=== PATIENT | male | born 1950 | race Caucasian/White ===

== ENCOUNTER 2017-03-29 12:48 | Inpatient (IN) | payer OTHER ==
[~2017-03-29] VITALS: Ht 170.2 cm; Wt 139.7 kg
--- NOTE | ~2017-03-29 | H ---
[facility] [place] [address] HISTORY AND PHYSICAL Name: RACHEAL BLANTON Room #: 211-P ADM IN M.R.#: [id number] Admission: 03/29/17 Attend Phys: Carey Gooden MD Discharge: Date of : 46 Report #: [id number] THIS REPORT FOR: //name// CC: Benjy Gooden DATE OF SERVICE: 03/29/2017 CHIEF COMPLAINT: Left lower abdominal pain. HISTORY OF PRESENT ILLNESS: The patient is a 67-year-old man with history of AFib, on Coumadin, who states that he started having left lower abdominal pain yesterday. It felt like the patient pulled muscle. The pain did not go away, and worsened today. He came to the emergency room. In the ER, CT scan of the abdomen showed left lower rectus sheath hematoma. The patient's INR was 3.8. The patient takes Coumadin for atrial fibrillation. He had a pacemaker placed. He states that he is doing overall well, and he has no complaints, other than mentioned above. About a week ago, the patient fell, injured his right shoulder. He says that x-rays were taken, that showed no fractures, and he is now recovering from the pain. PAST MEDICAL HISTORY: 1. Atrial fibrillation, status post pacemaker placement. 2. Mitral valve repair, no mechanical valve. 3. Diabetes mellitus type 2. 4. Dyslipidemia. 5. CHF, details are not specified. 6. Hypothyroidism. CURRENT MEDICATIONS: Reviewed and documented in the patient's chart. FAMILY HISTORY: Reviewed and not pertinent to the patient's current condition. SOCIAL HISTORY: The patient does not smoke cigarettes and does not drink alcohol. REVIEW OF SYSTEMS: As above in HPI section, all others negative. PHYSICAL EXAMINATION: GENERAL: The patient is an elderly man who is in no apparent distress. VITAL SIGNS: His blood pressure is 112/55, heart rate is 75 and regular, respiration is 18, and temperature is 97.8. HEENT: Pupils are equal. Eye movements are normal. Sclerae are anicteric. NECK: Supple. The patient has no thyromegaly. The patient has no JVD. Carotid bruits are not appreciated. [facility] [address] [place] [address] HISTORY AND PHYSICAL Name: RACHEAL BLANTON Room #: [address] [place] [address] [place] [facility].#: [id number] Admission: 03/29/17 Attend Phys: Carey Gooden MD Discharge: Date of : 46 Report #: [id number] CARDIOVASCULAR: The patient has regular rhythm and rate. He has no murmurs, gallops, or rubs. GASTROINTESTINAL: Abdomen is soft. He has left lower quadrant tenderness, close to the midline. He also has minor swelling in the same area. Bowel sounds are present. MUSCULOSKELETAL: The patient has no major joint deformities. His range of motion is normal. He has no edema, cyanosis, or clubbing. NEUROLOGIC: The patient is alert and oriented x3. His examination is nonfocal. SKIN: Reveals no skin lesions. LABORATORY DATA: As noted, current INR is 3.8. Metabolic profile is essentially normal, except with creatinine of 1.6. Random glucose is 61. Liver function tests are normal. CBC showed hemoglobin of 12.1. Platelets are slightly low at 146. Urinalysis is unremarkable. CT of the abdomen showed large left rectus sheath hematoma, as well as cholelithiasis. ASSESSMENT AND PLAN: 1. Large left rectus sheath hematoma. Coumadin is discontinued, and the patient is started on vitamin K. General surgeon is consulted. Consultation is very much appreciated. 2. Atrial fibrillation, status post pacemaker. The patient is on amiodarone. This will be continued unchanged. No anticoagulation for now. 3. Status post mitral valve repair. No mechanical valve. 4. Diabetes mellitus type 2. Insulin will be continued. We will hold glimepiride for now. 5. Slightly elevated creatinine at 1.6. Acute kidney injury versus chronic kidney disease stage 3. Creatinine will be monitored. 6. Hypothyroidism. The patient is on levothyroxine 175 mcg a day. We will check TSH and adjust levothyroxine as necessary. 7. Hypertension. Acceptable control. Continue losartan. <ELECTRONICALLY SIGNED> By: Carey Gooden MD 03/30/17 0937 1755 193 Carey Gooden MD /nt
--- NOTE | ~2017-03-29 | HC ---
[facility] [address] [place] [address] CONSULTATION Name: RACHEAL BLANTON Room #: 211-P [facility] IN M.R.#: [id number] Admission: 03/29/17 Attend Phys: Carey Gooden MD Discharge: 04/02/17 Date of : 46 Report #: [id number] THIS REPORT FOR: //name// CC: Benjy Gooden REASON FOR CONSULTATION: Cardiac history; retroperitoneal hematoma. HISTORY OF PRESENT ILLNESS: The patient is a 67-year-old gentleman with a complicated history including symptomatic paroxysmal atrial fibrillation for which he has underwent at least three cardioversion procedures predating ultimately mitral valve repair in 2012 at [facility] in [place], [place]. He reports a pacemaker was placed prior to the surgery. He continues to have symptoms all be less following surgery and ultimately biventricular pacer placement was placed. He thinks that an ablation, may be AV node ablation was performed at the time the biventricular pacer defibrillator was placed. He subsequently moved to the [place] area and has been followed by Dr. Mani Montesinos at [facility]. He did have inappropriate ICD discharge from what sounds like a lead problem for which he went lead revision in 2014. He has had echocardiograms performed, although these results are not currently available, similarly records from are not intermediately available, but have been requested. About a week ago, he had a nonsyncopal fall and injured his right shoulder and elbow. He has a large ecchymosis over his shoulder. A 3 to 4 days ago, he developed diffuse and left lower abdominal pain, this became much more severe prompting him to come to the Emergency Department where a CT scan demonstrated a large left inferior rectus sheath hematoma. There was mass affect upon a distended urinary bladder. His INR at the time of presentation was 3.8. He has not required transfusion therapy. I have been asked to render opinion about length of time off of warfarin. He denies recent heart failure symptoms including orthopnea or paroxysmal nocturnal dyspnea. His INRs have been checked monthly and have been in the therapeutic range. Denies recent symptoms to suggest ICD discharge. MEDICATIONS: Include amiodarone 200 mg daily, losartan 25 mg daily, aspirin, glimepiride 2 mg daily, atorvastatin 40 mg daily, carvedilol 6.25 mg twice daily, levothyroxine 175 mcg daily, Victoza 0.6 mg subcutaneous, and warfarin. ALLERGIES: HE IS ALLERGIC TO ADHESIVE TAPE. PAST MEDICAL HISTORY: Medical records have been reviewed and include a history of mitral valve repair, cardiomyopathy with biventricular pacer defibrillator placement. 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 SOCIAL HISTORY: He is . 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 FAMILY HISTORY: Notable for coronary artery disease in advanced age in both [address] [place] [address] CONSULTATION Name: RACHEAL BLANTON Room #: 211-P [facility] IN M.R.#: [id number] Admission: 03/29/17 Attend Phys: Carey Gooden MD Discharge: 04/02/17 Date of : 46 Report #: [id number]. REVIEW OF SYSTEMS: All systems negative except as that noted above. PHYSICAL EXAMINATION: GENERAL: This is a pleasant gentleman, who is alert and in no distress. VITAL SIGNS: Blood pressure is 100/52, heart rate is 70 and regular. He is afebrile. He is 5 feet 7 inches tall and 305 pounds. HEENT: There are neither xanthelasma, subcutaneous xanthomata, oral mucosal or digital cyanosis or kyphoscoliosis present. CHEST: Clear to auscultation and percussion. CARDIOVASCULAR: Regular rate and rhythm with normal S1 and S2. ABDOMEN: Soft, obese and nontender. EXTREMITIES: With trace edema. Radial pulses are 2+. NEUROLOGIC: He is alert with a nonfocal exam. LABORATORY DATA: EKG demonstrates biventricular pacing, I cannot tell if this is atrial fibrillation with IV pacing or sinus rhythm with low amplitude P-waves. Sodium is 136, potassium 3.4, and creatinine 1.7. INR of 1.7. White count 9.4, hemoglobin 10.5, hematocrit 29, and platelet count 139. IMPRESSION: 1. Large retroperitoneal hematoma. 2. Status post nonsyncopal fall contributing to #1 above. 3. History of mitral valve repair in 2012. 4. 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 5. Possible history of AV node ablation at the time of biventricular pacemaker placement; lead revision in 2014. 6. Acute kidney injury, possibly related to #1 above. 7. Hypertension. 8. Sleep apnea, on CPAP. RECOMMENDATIONS: 1. I believe that his warfarin is used for the possibility of paroxysmal atrial fibrillation with an elevated CHADS-VASc score. He does not have an indication for anticoagulant therapy following mitral valve repair. I will obtain records from [facility] in [place] and to confirm this. I would recommend being off of warfarin for at least 10 days to 2 weeks to assure the retroperitoneal bleeding has stopped and the hematoma has resolved or at least smaller. Further thoughts will be forthcoming based on this evaluation and based on review of requested records. [facility] [address] [place] [address] CONSULTATION Name: RACHEAL BLANTON Room #: 211-P DIS IN M.R.#: [id number] Admission: 03/29/17 Attend Phys: Carey Gooden MD Discharge: 04/02/17 Date of : 46 Report #: [id number] Thank you for asking me to participate in his care. <ELECTRONICALLY SIGNED> By: Cornelio Ambriz MD, FACC 04/06/17 0823 1424 0134 Cornelio Ambriz MD, FACC /nt
[2017-03-29 12:54] VITALS: BP 94/52
[2017-03-29 13:54] LABS: HEMATOCRIT 34.9 % (42.0-52.0); HEMOGLOBIN 12.1 gm/dL (14.0-18.0); MCH 31.8 pg (26.0-34.0); MCHC 34.6 g/dL (28.0-37.0); MCV 91.7 fL (80.0-100.0); PLATELET COUNT 146 thou/uL (150-400); RBC 3.81 mil/uL (4.50-6.00); RDW 15.5 % (10.5-14.5)
[2017-03-29 13:55] LABS: MANUAL DIFF YES
[2017-03-29 14:13] LABS: CALCIUM 8.5 mg/dL (8.5-10.1); CREATININE 1.6 mg/dL (0.7-1.3); POTASSIUM 4.2 mmol/L (3.5-5.1)
[2017-03-29 14:16] LABS: ABSOLUTE NEUTROPHILS 6.7 thou/uL (1.4-8.2); PLATELET ESTIMATE NORMAL; TOTAL CELL COUNT 100
[2017-03-29 14:17] LABS: ALBUMIN 3.4 g/dL (3.4-5.0); TOTAL BILIRUBIN 2.8 mg/dL (<0.1-1.0); TOTAL PROTEIN 7.1 g/dL (6.4-8.2)
[2017-03-29 14:54] LABS: URINE BILIRUBIN NEGATIVE (Negative); URINE BLOOD NEGATIVE (Negative); URINE COLOR YELLOW; URINE GLUCOSE-RANDOM* NEGATIVE (Negative); URINE KETONES NEGATIVE (Negative); URINE PROTEIN (DIPSTICK) NEGATIVE (Negative); URINE UROBILINOGEN 0.2 E.U./dl (0.2-1.0)
[2017-03-29 14:56] LABS: URINE LEUKOCYTES-REFLEX TRACE (Negative)
[2017-03-29] MEDS ORDERED: FOLIC ACID0.8 MG PO (15:52)
[2017-03-29] MEDS ORDERED: PACERONE 200 M200 M1 PO (15:52)
[2017-03-29] MEDS ORDERED: MAGOX 400400 MG PO (15:59)
[2017-03-29] MEDS ORDERED: UNICOMPLEX M TA1 TA1 PO (15:59)
[2017-03-29] MEDS ORDERED: COZAAR 25 MG TA25 M1 PO (16:00)
[2017-03-29] MEDS ORDERED: VITAMIN D-32000 UNIT PO (16:00)
[2017-03-29] MEDS ORDERED: [UNRECOGNIZED DRUG - OTHER] PO (16:01)
[2017-03-29] MEDS ORDERED: ASPIR 8181 MG PO (16:01)
[2017-03-29] MEDS ORDERED: AMARYL2 MG PO (16:01)
[2017-03-29 16:02] LABS: INR 3.8; PROTIME 37.8 Seconds (9.3-11.4)
[2017-03-29] MEDS ORDERED: CARVEDILOL6.25 MG (16:02)
[2017-03-29] MEDS ORDERED: ATORVASTATIN CA40 MG PO (16:02)
[2017-03-29] MEDS ORDERED: LEVEMIR100 UNIT/1 SUBQ (16:03)
[2017-03-29] MEDS ORDERED: SYNTHROID175 MCG PO (16:03)
[2017-03-29] MEDS ORDERED: VICTOZA0.6 MG/0.1 SUBQ (16:04)
[2017-03-29] MEDS ORDERED: COUMADIN 2 MG TA2 M1 PO (16:05)
[2017-03-29] MEDS ORDERED: COUMADIN 5 MG TA5 M1 PO ×2 (16:06)
[2017-03-29 16:58] VITALS: BP 112/55
[2017-03-29 17:35] VITALS: BP 119/60
[2017-03-29 19:32] VITALS: BP 111/69
[2017-03-29 21:04] LABS: HEMATOCRIT 34.3 % (42.0-52.0); HEMOGLOBIN 11.7 gm/dL (14.0-18.0)
[2017-03-29 22:58] VITALS: BP 102/52
[2017-03-30 03:53] VITALS: BP 102/70
[2017-03-30 04:04] LABS: HEMATOCRIT 31.3 % (42.0-52.0); HEMOGLOBIN 10.9 gm/dL (14.0-18.0); MCH 32.3 pg (26.0-34.0); MCHC 34.9 g/dL (28.0-37.0); MCV 92.5 fL (80.0-100.0); PLATELET COUNT 140 thou/uL (150-400); RBC 3.39 mil/uL (4.50-6.00); RDW 15.5 % (10.5-14.5); WBC 9.5 thou/uL (4.0-11.0)
[2017-03-30 04:05] LABS: MANUAL DIFF YES
[2017-03-30 04:19] LABS: CALCIUM 8.1 mg/dL (8.5-10.1); CREATININE 1.6 mg/dL (0.7-1.3); POTASSIUM 3.9 mmol/L (3.5-5.1)
[2017-03-30 04:20] LABS: PROTIME 16.9 Seconds (9.3-11.4)
[2017-03-30 04:30] LABS: INR 1.7
[2017-03-30 05:07] LABS: ABSOLUTE NEUTROPHILS 8.3 thou/uL (1.4-8.2); TOTAL CELL COUNT 100
[2017-03-30 08:00] VITALS: BP 114/69
[2017-03-30 11:45] VITALS: BP 106/64
[2017-03-30 15:35] VITALS: BP 99/60
[2017-03-30 19:47] VITALS: BP 96/57
[2017-03-31 04:02] VITALS: BP 95/60
[2017-03-31 04:20] LABS: HEMATOCRIT 29.6 % (42.0-52.0); HEMOGLOBIN 10.5 gm/dL (14.0-18.0); MCH 32.6 pg (26.0-34.0); MCHC 35.5 g/dL (28.0-37.0); PLATELET COUNT 139 thou/uL (150-400); RBC 3.22 mil/uL (4.50-6.00); RDW 15.4 % (10.5-14.5); WBC 9.4 thou/uL (4.0-11.0)
[2017-03-31 04:23] LABS: MANUAL DIFF YES
[2017-03-31 04:30] LABS: CALCIUM 8.3 mg/dL (8.5-10.1); CREATININE 1.7 mg/dL (0.7-1.3); POTASSIUM 3.4 mmol/L (3.5-5.1)
[2017-03-31 06:23] LABS: ABSOLUTE NEUTROPHILS 7.2 thou/uL (1.4-8.2); ANISOCYTOSIS 1+; POLYCHROMASIA OCCASIONAL; TOTAL CELL COUNT 100
[2017-03-31 07:10] VITALS: BP 89/53
[2017-03-31 09:55] VITALS: BP 100/52
[2017-03-31 11:10] VITALS: BP 87/43
[2017-03-31 15:30] VITALS: BP 101/66
[2017-03-31 20:00] VITALS: BP 112/71
[2017-04-01] VITALS (7 sets, daily range): BP systolic 95–140; BP diastolic 53–67
[2017-04-01 03:31] LABS: HEMOGLOBIN 9.6 gm/dL (14.0-18.0); MCH 31.3 pg (26.0-34.0); MCHC 34.1 g/dL (28.0-37.0); MCV 91.8 fL (80.0-100.0); PLATELET COUNT 144 thou/uL (150-400); RBC 3.05 mil/uL (4.50-6.00); RDW 15.6 % (10.5-14.5); WBC 8.6 thou/uL (4.0-11.0)
[2017-04-01 03:33] LABS: MANUAL DIFF YES
[2017-04-01 03:38] LABS: CALCIUM 8.2 mg/dL (8.5-10.1); CREATININE 1.7 mg/dL (0.7-1.3); POTASSIUM 3.6 mmol/L (3.5-5.1)
[2017-04-01 05:40] LABS: ABSOLUTE NEUTROPHILS 6.7 thou/uL (1.4-8.2); ANISOCYTOSIS SLIGHT; TOTAL CELL COUNT 100
[2017-04-01 22:02] LABS: HEMATOCRIT 28.3 % (42.0-52.0)
[2017-04-02 03:00] VITALS: BP 94/41
[2017-04-02 03:02] VITALS: BP 94/41
[2017-04-02 03:33] LABS: HEMATOCRIT 28.2 % (42.0-52.0); HEMOGLOBIN 9.6 gm/dL (14.0-18.0); MCH 31.5 pg (26.0-34.0); MCHC 33.9 g/dL (28.0-37.0); MCV 93.1 fL (80.0-100.0); PLATELET COUNT 176 thou/uL (150-400); RBC 3.03 mil/uL (4.50-6.00); RDW 15.3 % (10.5-14.5); WBC 8.9 thou/uL (4.0-11.0)
[2017-04-02 03:42] LABS: CALCIUM 8.3 mg/dL (8.5-10.1); CREATININE 1.7 mg/dL (0.7-1.3)
[2017-04-02 04:13] LABS: MANUAL DIFF YES
[2017-04-02 06:57] LABS: ABSOLUTE NEUTROPHILS 6.8 thou/uL (1.4-8.2); ANISOCYTOSIS 1+; HYPOCHROMASIA 1+; METAMYELOCYTES 1 %; POLYCHROMASIA OCCASIONAL; TOTAL CELL COUNT 100
[2017-04-02 07:30] VITALS: BP 108/51
[2017-04-02 11:23] VITALS: BP 111/45
[2017-04-02] MEDS ORDERED: POTASSIUM20 PO (13:06)
[2017-04-02] MEDS ORDERED: COLACE100 MG PO (13:06)
[2017-04-02] MEDS ORDERED: MIRALAX17 GM PO (13:06)
[2017-04-02] MEDS ORDERED: DEMADEX20 MG PO (13:06)
[2017-04-02] MEDS ORDERED: BACITRACIN28.4 GM TOP (13:06)
[2017-04-02 13:27] VITALS: BP 111/45
== END 2017-04-02 15:01 | disposition home or self-care (01) | DRG 914 ==
LOC: ER 12:48 → 2N 16:46 → EROBS 16:46 → 2N 17:03 → ENTRNSPT 04-02 13:45 → EDTRNSPTSTS 04-02 13:49 → 2N 04-02 15:01
PROVIDERS: Internal Medicine Endocrinology, Diabetes & Metabolism; Nurse Practitioner Acute Care; Physician Assistant
DX: S36.892A Contusion of other intra-abdominal organs, initial encounter (principal); N17.9 Acute kidney failure, unspecified; D68.59 Other primary thrombophilia; I13.0 Hypertensive heart and chronic kidney disease with heart failure and stage 1 through stage 4 chronic kidney disease, or unspecified chronic kidney disease; I42.9 Cardiomyopathy, unspecified; Z68.42 Body mass index [BMI] 45.0-49.9, adult; D64.9 Anemia, unspecified; E78.5 Hyperlipidemia, unspecified; I50.9 Heart failure, unspecified; E03.9 Hypothyroidism, unspecified; I48.91 Unspecified atrial fibrillation; E66.01 Morbid (severe) obesity due to excess calories; E11.65 Type 2 diabetes mellitus with hyperglycemia; E87.6 Hypokalemia; G47.33 Obstructive sleep apnea (adult) (pediatric); N18.3 Chronic kidney disease, stage 3 (moderate); K59.00 Constipation, unspecified; X58.XXXA Exposure to other specified factors, initial encounter; E11.22 Type 2 diabetes mellitus with diabetic chronic kidney disease; Z95.0 Presence of cardiac pacemaker; Z88.8 Allergy status to other drugs, medicaments and biological substances; Z95.2 Presence of prosthetic heart valve; Z79.4 Long term (current) use of insulin; Y93.89 Activity, other specified; Y92.89 Other specified places as the place of occurrence of the external cause; Y99.8 Other external cause status
CPT/HCPCS: 10081

== ENCOUNTER → 2017-06-20 | Outpatient (CLI) | payer OTHER ==
[~2017-06-20] VITALS: Ht 170.2 cm; Wt 127.9 kg
[~2017-06-20] MED LIST: AMARYL2 MG PO; ASPIR 8181 MG PO; ATORVASTATIN CA40 MG PO; BACITRACIN28.4 GM TOP; CARVEDILOL6.25 MG; COLACE100 MG PO; COUMADIN 2 MG TA2 M1 PO; COUMADIN 5 MG TA5 M1 PO; COZAAR 25 MG TA25 M1 PO; DEMADEX20 MG PO; FOLIC ACID0.8 MG PO; LEVEMIR100 UNIT/1 SUBQ; MAGOX 400400 MG PO; MIRALAX17 GM PO; PACERONE 200 M200 M1 PO; POTASSIUM20 PO; SYNTHROID175 MCG PO; UNICOMPLEX M TA1 TA1 PO; VICTOZA0.6 MG/0.1 SUBQ; VITAMIN D-32000 UNIT PO; [UNRECOGNIZED DRUG - OTHER] PO
--- NOTE | ~2017-06-20 | CATHLAB ---
[facility] [place] [address] [place] [address] INVASIVE PROCEDURE REPORT Name: FRANCOISE BLANTONMIHAI DIXON Room #: REG [facility]#: [id number] Admission: 06/20/17 Attend Phys: Cornelio Ambriz, Discharge: Date of : 46 Date of Service: 06/20/17 1248 Report #: [id number] THIS REPORT FOR: //name// APPROVED REPORT Patient Details Patient Status: Out-Patient Room #: The patient is a 67 year-old male Event Personnel Cornelio Ambriz Vacuum Drier Operator, Fernando Scales RN, Keyla Rosales CVT Monitor, Dedrick Maloney Veterinary Radiologist Procedures Performed Left Heart Cath w/or w/o Coronaries [id number] [facility] Procedure Narrative The Right Groin^ was infiltrated with subcutaneous anesthesia. A PINNACLE 6FR Sheath #[id number] sheath was inserted into the RFA 6FR^. Coronary angiography was performed using coronary diagnostic catheters. The right coronary system was accessed and visualized with a JR4 catheter. The left coronary system was accessed and visualized with a JL4 catheter. The left ventricle was accessed and visualized with a PIGTAIL catheter. Left ventriculogram was performed in 30 degree projection. Closure device was deployed with a 6 Fr MYNXGRIP 6/7F #[id number]. The patient tolerated the procedure well and there were no complications associated with the procedure. 8.08 Intraoperative Conscious Sedation Sedation start time: Case end Time: 8.25 Fentanyl 25.0 mcg Versed 1.5 mg Fluoro Time: 2.20 minutes Dose: DAP 5244.45 cGycm2 710 mGy Contrast Type and Amount: Visipaque 50 ml Coronary Angiography The patient's coronary anatomy is right dominant. Diagnostic Cath Left Main Normal LAD Mild scattered plaquing Diagonal 1 Single large diagonal branch with minimal plaquing Circumflex Non-dominant and comprised of single marginal [facility] [place] [address] [place] [address] INVASIVE PROCEDURE REPORT Name: RACHEAL BLANTON Room #: REG [facility]#: [id number] Admission: 06/20/17 Attend Phys: Cornelio Ambriz, Discharge: Date of : 46 Date of Service: 06/20/17 1248 Report #: [id number] OM1 Mild scattered plaquing Right Coronary Large, dominant and angiographically normal including large PDA and PL branches Left Ventriculography Left Ventriculography was not performed. Hemodynamics The aortic pressure is 113/79 mmHg with a mean of 93 mmHg. The left ventricular pressure is 115/27 mmHg with a mean of mmHg. The left ventricular end diastolic pressure is 42 mmHg. There was no gradient across the aortic valve upon pullback. Conclusion 1. Mild scattered plaquing in coronary tree 2. Right dominant circulation 3. Elevated left heart pressures <ELECTRONICALLY SIGNED> By: Cornelio Ambriz MD, FACC 06/20/17 1248 1248 1248 Cornelio Ambriz MD, FAC /INF
--- NOTE | ~2017-06-20 | EKG ---
[place] [address] [facility] [place] [address] ELECTROCARDIOGRAM REPORT Name: [facility]ACHEAL BLANTON [id number] Admission: 06/20/17 Attend Phys: Cornelio Ambriz MD, Discharge: Date of : 46 Report #: [id number] THIS REPORT FOR: //name// [facility] Test Date: 2017-06-20 Test Time: 07:04:34 Pat Name: RACHEAL BLANTON Department: Room: Gender: M Infection Control Practitioner: Alexey MEADOWS : 1950 Requested By: Cornelio Ambriz Order Number: [id number] MD: Cornelio Ambriz Measurements Intervals [place] Rate: 70 P: 0 DE: 39 QRS: 162 QRSD: 184 T: 130 QT: 501 QTc: 541 Interpretive Statements Atrial-ventricular dual-paced rhythm No further analysis attempted due to paced rhythm Compared to ECG 05/05/2017 10:31:54 No significant changes Electronically Signed On 06-21-2017 7:39:47 STARCHMAKER by Cornelio Ambriz [email or web address] <ELECTRONICALLY SIGNED> By: Cornelio Ambriz MD, [facility] 06/21/17 0739 0704 0704 Cornelio Ambriz MD, [facility] /EPI
[2017-06-20 07:19] LABS: HEMATOCRIT 36.8 % (42.0-52.0); HEMOGLOBIN 12.3 gm/dL (14.0-18.0); MCH 30.5 pg (26.0-34.0); MCHC 33.5 g/dL (28.0-37.0); MCV 91.1 fL (80.0-100.0); RBC 4.04 mil/uL (4.50-6.00)
[2017-06-20 07:32] LABS: INR 1.2
[2017-06-20 07:33] LABS: CALCIUM 8.9 mg/dL (8.5-10.1); CREATININE 1.8 mg/dL (0.7-1.3); POTASSIUM 4.1 mmol/L (3.5-5.1)
[2017-06-20 07:40] VITALS: BP 101/61
[2017-06-20 15:24] LABS: CHOLESTEROL 142 mg/dL (<200); HDL CHOLESTEROL 46 mg/dL (>40); LDL CHOLESTEROL 76 mg/dL (<100); TC:HDL 3.1 Ratio (Not establshd); TRIGLYCERIDE 101 mg/dL (<150); TROPONIN-I 0.09 ng/mL (<0.06); VLDL 20 mg/dL (<40)
== END | disposition home or self-care (01) ==
LOC: CATH 06:35
PROVIDERS: Internal Medicine; Internal Medicine Cardiovascular Disease
DX: I25.10 Atherosclerotic heart disease of native coronary artery without angina pectoris (principal); I11.0 Hypertensive heart disease with heart failure; I50.9 Heart failure, unspecified; E11.9 Type 2 diabetes mellitus without complications; I42.9 Cardiomyopathy, unspecified; I48.92 Unspecified atrial flutter; E66.9 Obesity, unspecified; Z79.4 Long term (current) use of insulin; Z87.891 Personal history of nicotine dependence

== ENCOUNTER 2017-12-13 17:55 | Inpatient (IN) | payer OTHER ==
[~2017-12-13] VITALS: Ht 170.2 cm; Wt 131.0 kg
--- NOTE | ~2017-12-13 | 2DMMODE ---
[facility] [address] [place] [address] 2 D/M-MODE ECHOCARDIOGRAM Name: RACHEAL BLANTON DESTINY Room #: 214-P ADM IN M.R.#: [id number] Admission: 12/13/17 Attend Phys: Brent Ashton, Discharge: Date of : 46 Date of Service: 12/14/17 1500 Report #: [id number] THIS REPORT FOR: //name// APPROVED REPORT Study performed: 12/14/2017 10:13:44 EXAM: Comprehensive 2D, Doppler, and color-flow Echocardiogram Patient Location: Echo lab Room #: 214 Status: routine BSA: 2.36 HR: 69 bpm BP: 115/71 mmHg Other Information Study Quality: Adequate Indications ICD: Congestive Heart Failure Mitral Valve Disease Diabetes Cardiomyopathy 2D Dimensions RVDd: 53.14 mm LVEF(%): 27.78 (>50%) IVSd: 10.75 (7-11mm) LVOT Diam: 24.38 (18-24mm) LVDd: 67.58 mm PWd: 10.60 (7-11mm) Ascending Ao: 30.70 (22-36mm) LVDs: 58.58 (25-40mm) Aortic Root: 32.09 mm IVC: 24.00 mm Davidson's LVEF: 27.78 % Volumes Left Atrial Volume (Systole) Single Plane 4CH: 90.47 mL Single Plane 2CH: 128.60 mL LA ESV Index: 48.00 mL/m2 Aortic Valve AoV Peak Vincent.: 1.01 m/s AO Peak Gr.: 4.09 mmHg LVOT Max P.15 mmHg LVOT Max V: 0.73 m/s INA Vmax: 3.38 cm2 [facility] [address] [place] [address] 2 D/M-MODE ECHOCARDIOGRAM Name: RACHEAL BLANTON [facility] Room #: 214-[facility] IN ..#: [id number] Admission: 12/13/17 Attend Phys: Brent Ashton, Discharge: Date of : 46 Date of Service: 12/14/17 1500 Report #: [id number] Mitral Valve IVRT: 138.41 ms Pulmonary Valve PV Peak Vincent.: 0.66 m/s PV Peak Gr.: 1.77 mmHg Tricuspid Valve TR Peak Vincent.: 3.06 m/s TR Peak Gr.: 37.42 mmHg PA Pressure: 47.00 mmHg Left Ventricle Left ventricle is dilated. There is global hypokinesis of the left ventricle. There is normal left ventricular wall thickness. Left ventricular ejection fraction is moderately decreased. LVEF 40-45%. This study is not technically sufficient to allow evaluation of the LV diastolic function. Right Ventricle Right ventricle is dilated. The right ventricular systolic function is normal. Device lead is present in the right ventricle. Atria Left atrium is dilated. Right atrium is dilated. Device lead is present in the right atrium. Aortic Valve Aortic valve is calcified. No aortic regurgitation is present. There is no aortic valvular stenosis. Mitral Valve St Viral Mitral valve ring. Changes consistent with prior repair Mild mitral regurgitation. No evidence of mitral valve stenosis. Tricuspid Valve The tricuspid valve is normal in structure. There is mild tricuspid regurgitation. Estimated PAP 47 mmHg. There is moderate pulmonary hypertension. Pulmonic Valve The pulmonary valve is normal in structure. There is no pulmonic valvular regurgitation. Great Vessels The aortic root is normal in size. IVC is dilated and collapses [facility] [address] [place] [address] 2 D/M-MODE ECHOCARDIOGRAM Name: RACHEAL BLANTON DESTINY Room #: 214-P [facility] IN M.R.#: [id number] Admission: 12/13/17 Attend Phys: Brent Ashton, Discharge: Date of : 46 Date of Service: 12/14/17 1500 Report #: [id number] <50% with inspiration. Pericardium There is no pericardial effusion. <Conclusion> Technically difficult. Definity used Left ventricular ejection fraction is moderately decreased. LVEF 40-45%. Both atria are dilated. Aortic valve is calcified. No aortic regurgitation or stenosis. St Viral Mitral valve ring. Changes consistent with prior repair. Mild mitral regurgitation. There is mild tricuspid regurgitation. Estimated pulmonary artery pressure of 47 mmHg. There is no pericardial effusion. <ELECTRONICALLY SIGNED> By: Cornelio Ambriz MD, FACC 12/14/171499 99 99 Cornelio Ambriz MD, FAC /INF
--- NOTE | ~2017-12-13 | EKG ---
[address] [address] ELECTROCARDIOGRAM REPORT Name: RACHEAL BLANTON DESTINY Room #: 214-P ADM IN M.R.#: [id number] Admission: 12/13/17 Attend Phys: Brent Ashton MD Discharge: Date of : 46 Report #: [id number] THIS REPORT FOR: //name// [facility] Test Date: 2017-12-15 Test Time: 06:09:05 Pat Name: RACHEAL BLANTON Department: Room: 214 P Gender: M Steel Fabricator: CAMI : 1950 Requested By: Cornelio Ambriz Order Number: [id number] MD: Jaylan Barahona Measurements Intervals [place] Rate: 70 P: 96 [place]: 188 QRS: 171 QRSD: 186 T: -54 QT: 542 QTc: 585 Interpretive Statements Atrial-ventricular dual-paced rhythm No further analysis attempted due to paced rhythm Baseline wander in lead(s) V4,V5 Compared to ECG 12/13/2017 17:57:28 No significant changes Electronically Signed On 12-15-2017 21:33:12 CDT by Jaylan Barahona [email or web address] <ELECTRONICALLY SIGNED> By: Jaylan Barahona MD 12/15/17 2133 0609 0609 Jaylan Barahona MD /EPI
--- NOTE | ~2017-12-13 | EKG ---
[address] [place] [email or web address] [address] ELECTROCARDIOGRAM REPORT Name: FRANNYFRANCOISERACHEAL DUANE Room #: REG [facility]#: [id number] Admission: 12/13/17 Attend Phys: Discharge: Date of : 46 Report #: [id number] THIS REPORT FOR: //name// [facility] ED Test Date: 2017-12-13 Test Time: 17:57:28 Pat Name: RACHEAL BLANTON Department: Room: Gender: M Alumni Relations Manager: DORETHA : 1950 Requested By: Cristina Sierra Order Number: [id number] MD: Jaylan Barahona Measurements Intervals [place] Rate: 70 P: 0 [place]: 160 QRS: 168 QRSD: 183 T: 166 QT: 490 QTc: 529 Interpretive Statements Atrial-ventricular dual-paced rhythm No further analysis attempted due to paced rhythm Compared to ECG 06/20/2017 07:04:34 No significant changes Electronically Signed On 12-13-2017 20:20:42 CDT by Jaylan Barahona [email or web address] <ELECTRONICALLY SIGNED> By: Jaylan Barahona MD 12/13/172019 56 56 Jaylan Barahona MD /[place]
--- NOTE | ~2017-12-13 | HC ---
[facility] [place] [address] CONSULTATION Name: RACHEAL BLANTON Room #: 214-P [facility] IN M.R.#: [id number] Admission: 12/13/17 Attend Phys: Brent Ashton MD Discharge: 12/17/17 Date of : 46 Report #: [id number] THIS REPORT FOR: //name// CC: Brent Ashton DATE OF SERVICE: 12/14/2017 REASON FOR CONSULTATION: ICD discharge. HISTORY OF PRESENT ILLNESS: The patient off is a 67-year-old gentleman with a complicated history including symptomatic paroxysmal atrial fibrillation, for which he has undergone multiple cardioversion procedures. Ultimately in 2012, he had mitral valve repair at [facility] in [place], [place]. Reports a pacemaker prior to the surgery. Ultimately, he had heart failure following the surgery related to RV pacing and underwent upgrade to a St. Viral biventricular pacer defibrillator. He thinks around that same time, an AV node ablation or modification procedure was performed. In May, he presented with heart failure and a tiny troponin elevation. Ultimately, coronary angiography was performed demonstrating minimal atherosclerotic coronary artery disease and elevated left heart pressures. Yesterday, he was watching television and became lightheaded. This was followed by 1 or 2 ICD shocks. He thinks he may have transiently lost consciousness. He felt fine before the episode and has felt fine since. This is the first device discharge that he has had since implant, presented to the emergency department and was admitted for further evaluation. MEDICATIONS: Include Victoza, aspirin 81 mg daily, amiodarone 200 mg 5 days a week, losartan 25 mg daily, Amaryl 2 mg daily, atorvastatin 40 mg daily, carvedilol 6.25 mg in the morning and 25 mg at night, levothyroxine 175 mcg daily, warfarin 6 mg 5 days a week, 3 mg 2 days a week, potassium 60 mEq daily, torsemide 75 mg daily, and Slow-Mag. ALLERGIES: He is allergic to ADHESIVE TAPE. PAST MEDICAL HISTORY: His past history and medical records have been reviewed and include a history of congestive heart failure, mitral valve repair in 2012, cardiomyopathy, hypertension, dyslipidemia, and diabetes. Non-syncopal fall with rectus sheath hematoma in 03/2017. 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 FAMILY HISTORY: Notable for coronary artery disease in both parents at advanced ages. REVIEW OF SYSTEMS: All systems negative except as that noted above. [facility] [address] [place] [address] CONSULTATION Name: RACHEAL BLANTON Room #: 214-P [facility] IN M.R.#: [id number] Admission: 12/13/17 Attend Phys: Brent Ashton MD Discharge: 12/17/17 Date of : 46 Report #: [id number] PHYSICAL EXAMINATION: GENERAL: A pleasant gentleman who is alert and in no distress. VITAL SIGNS: Blood pressure is 115/71, heart rate is 74 and regular. He is afebrile. HEENT: There are neither xanthelasma, subcutaneous xanthomata, oral mucosal or digital cyanosis or kyphoscoliosis present. CHEST: Clear to auscultation and percussion. CARDIOVASCULAR: Regular rate and rhythm with normal S1, S2. No murmurs or rubs. ABDOMEN: Soft and nontender. EXTREMITIES: Without cyanosis, clubbing or edema. Radial pulses are 2+. NEUROLOGIC: He is alert with a nonfocal exam. DATA: EKG: Sinus rhythm with biventricular pacing. Sodium is 141, potassium 3.8, creatinine 1.8. Troponin 0.07. White count 5.9, hemoglobin 12, hematocrit 37, platelet count 135. Chest x-ray demonstrates no significant abnormality in the chest. Prior echocardiography in 06/2017 demonstrated an ejection fraction of 45% with biatrial enlargement. No mitral insufficiency and a pulmonary artery pressure of 45 to 50 mmHg. I reviewed is a St. Viral ICD interrogation. This demonstrates appropriate ATP, then shocks for VT in zone 2. IMPRESSION: 1. Ventricular tachycardia with appropriate implantable cardioverter defibrillator discharge. 2. Chronic systolic heart failure. 3. History of mitral valve repair in 2012. 4. Valvular and pacing-induced cardiomyopathy, ejection fraction 45% range. 5. History of atrioventricular node modification with biventricular pacer placement in 2012 with lead revision in 2014. 6. Chronic kidney disease. 7. Hypertension. 8. Sleep apnea, on CPAP. 9. Prior atrial flutter with cardioversion. 10. Hypercoagulable. 11. Minimal coronary artery disease by recent angiography. RECOMMENDATIONS: 1. Amiodarone loading. 2. Echocardiogram with Doppler. [address] [address] CONSULTATION Name: RACHEAL BLANTON Room #: 214-P [facility] IN ..#: [id number] Admission: 12/13/17 Attend Phys: Brent Ashton MD Discharge: 12/17/17 Date of : 46 Report #: [id number] 3. TSH. 4. Continued anticoagulation (INR 2 to 3 range). <ELECTRONICALLY SIGNED> By: Cornelio Ambriz MD, FACC 12/18/17 1636 0756 0830 Cornelio Ambriz MD, FACC /nt
[~2017-12-13 17:55] MED LIST changes: -CARVEDILOL6.25 MG; +COREG6.25 MG PO
[2017-12-13 17:56] VITALS: BP 87/57
[2017-12-13 18:34] LABS: HEMATOCRIT 37.8 % (42.0-52.0); HEMOGLOBIN 12.6 gm/dL (14.0-18.0); MCH 30.5 pg (26.0-34.0); MCHC 33.3 g/dL (28.0-37.0); MCV 91.5 fL (80.0-100.0); PLATELET COUNT 135 thou/uL (150-400); RBC 4.13 mil/uL (4.50-6.00); RDW 15.2 % (10.5-14.5); WBC 5.9 thou/uL (4.0-11.0)
[2017-12-13 18:42] LABS: CALCIUM 8.9 mg/dL (8.5-10.1); CREATININE 1.8 mg/dL (0.7-1.3); POTASSIUM 3.8 mmol/L (3.5-5.1)
[2017-12-13 18:50] LABS: TROPONIN-I 0.07 ng/mL (<0.06)
[2017-12-13 18:53] LABS: ABSOLUTE NEUTROPHILS 4.1 thou/uL (1.4-8.2)
[2017-12-13 18:54] LABS: ANISOCYTOSIS 1+; POLYCHROMASIA OCCASIONAL
[2017-12-13] MEDS ORDERED: DEMADEX20 MG PO (19:50)
[2017-12-13] MEDS ORDERED: POTASSIUM20 PO ×2 (19:50)
[2017-12-13] MEDS ORDERED: COREG25 MG PO (19:52)
[2017-12-13] MEDS ORDERED: MAGOX 400400 MG PO (19:56)
[2017-12-13] MEDS ORDERED: VITAMIN D1000 UNI1 PO (19:57)
[2017-12-13 21:00] VITALS: BP 120/67
[2017-12-13 22:06] VITALS: BP 120/67
[2017-12-13 22:16] VITALS: BP 136/77
[2017-12-14 00:04] VITALS: BP 101/63
[2017-12-14 04:46] VITALS: BP 115/71
[2017-12-14 07:30] VITALS: BP 105/65
[2017-12-14 09:16] LABS: CALCIUM 9.1 mg/dL (8.5-10.1); CREATININE 2.1 mg/dL (0.7-1.3); MAGNESIUM 2.9 mg/dL (1.8-2.4); POTASSIUM 4.7 mmol/L (3.5-5.1)
[2017-12-14 11:30] VITALS: BP 122/68
[2017-12-14 16:40] VITALS: BP 107/72
[2017-12-14 20:00] VITALS: BP 106/55
[2017-12-15 04:11] LABS: CALCIUM 8.5 mg/dL (8.5-10.1); CREATININE 1.9 mg/dL (0.7-1.3)
[2017-12-15 04:12] LABS: INR 2.2; PROTIME 21.8 Seconds (9.3-11.4)
[2017-12-15 04:14] LABS: POTASSIUM 3.7 mmol/L (3.5-5.1)
[2017-12-15 04:30] VITALS: BP 103/64
[2017-12-15 07:57] VITALS: BP 113/68
[2017-12-15 12:15] VITALS: BP 117/42
[2017-12-15 16:30] VITALS: BP 111/63
[2017-12-15 20:09] VITALS: BP 113/75
[2017-12-16 03:46] VITALS: BP 98/67
[2017-12-16 08:13] VITALS: BP 107/79
[2017-12-16 09:45] LABS: HEMATOCRIT 37.3 % (42.0-52.0); HEMOGLOBIN 12.3 gm/dL (14.0-18.0); MCH 30.3 pg (26.0-34.0); MCHC 32.9 g/dL (28.0-37.0); MCV 92.1 fL (80.0-100.0); RBC 4.05 mil/uL (4.50-6.00); RDW 15.3 % (10.5-14.5); WBC 5.6 thou/uL (4.0-11.0)
[2017-12-16 09:54] LABS: CALCIUM 8.7 mg/dL (8.5-10.1); CREATININE 1.9 mg/dL (0.7-1.3); POTASSIUM 4.1 mmol/L (3.5-5.1)
[2017-12-16 09:59] LABS: PROTIME 19.9 Seconds (9.3-11.4)
[2017-12-16 12:13] VITALS: BP 106/71
[2017-12-16 17:04] VITALS: BP 119/73
[2017-12-16 19:54] VITALS: BP 105/57
[2017-12-17 04:48] VITALS: BP 108/66
[2017-12-17 05:28] LABS: HEMATOCRIT 36.7 % (42.0-52.0); HEMOGLOBIN 12.2 gm/dL (14.0-18.0); MCH 30.6 pg (26.0-34.0); MCHC 33.2 g/dL (28.0-37.0); MCV 92.1 fL (80.0-100.0); RBC 3.99 mil/uL (4.50-6.00); RDW 15.8 % (10.5-14.5); WBC 6.1 thou/uL (4.0-11.0)
[2017-12-17 05:36] LABS: INR 2.1; PROTIME 21.2 Seconds (9.3-11.4)
[2017-12-17] MEDS ORDERED: PACERONE 200 M200 M1 PO (07:22)
[2017-12-17] MEDS ORDERED: DEMADEX 2020 MG/1 TA PO (07:23)
[2017-12-17 07:37] VITALS: BP 113/72
[2017-12-17 08:52] VITALS: BP 113/72
== END 2017-12-17 09:21 | disposition home or self-care (01) | DRG 308 ==
LOC: ER 17:55 → EROBS 20:22 → 2N 20:22 → ENTRNSPT 12-17 09:12 → EDTRNSPTSTS 12-17 09:13 → 2N 12-17 09:21
PROVIDERS: Emergency Medicine; Internal Medicine; Internal Medicine Cardiovascular Disease
DX: I47.2 Ventricular tachycardia (principal); I50.23 Acute on chronic systolic (congestive) heart failure; I13.0 Hypertensive heart and chronic kidney disease with heart failure and stage 1 through stage 4 chronic kidney disease, or unspecified chronic kidney disease; D68.59 Other primary thrombophilia; I42.9 Cardiomyopathy, unspecified; I48.92 Unspecified atrial flutter; E78.00 Pure hypercholesterolemia, unspecified; N18.9 Chronic kidney disease, unspecified; E11.22 Type 2 diabetes mellitus with diabetic chronic kidney disease; I48.0 Paroxysmal atrial fibrillation; E78.5 Hyperlipidemia, unspecified; I25.10 Atherosclerotic heart disease of native coronary artery without angina pectoris; G47.33 Obstructive sleep apnea (adult) (pediatric); Z91.040 Latex allergy status; Z79.899 Other long term (current) drug therapy; Z79.82 Long term (current) use of aspirin; Z79.4 Long term (current) use of insulin; Z95.0 Presence of cardiac pacemaker; Z87.891 Personal history of nicotine dependence; Z91.81 History of falling; Z82.49 Family history of ischemic heart disease and other diseases of the circulatory system
CPT/HCPCS: 10081

== ENCOUNTER 2018-04-14 17:49 | Inpatient (IN) | payer OTHER ==
[~2018-04-14] VITALS: Ht 152.4 cm; Wt 117.9 kg
[2018-04-14] VITALS (10 sets, daily range): BP systolic 95–121; BP diastolic 55–79
--- NOTE | ~2018-04-14 | EKG ---
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1950 Requested By: Jeremias Ivan Order Number: [id number] MD: Cornelio Ambriz Measurements Intervals [place] Rate: 70 P: 0 [place]: 164 QRS: 177 QRSD: 229 T: 148 QT: 561 QTc: 606 Interpretive Statements Atrial-ventricular dual-paced rhythm No further analysis attempted due to paced rhythm Compared to ECG 12/15/2017 06:09:05 No significant changes Electronically Signed On 04-15-2018 8:39:30 CDT by Cornelio Ambriz [email or web address] <ELECTRONICALLY SIGNED> By: Cornelio Ambriz MD, [facility] 04/15/18 0839 1754 1754 Cornelio Ambriz MD, [facility] /EPI
--- NOTE | ~2018-04-14 | HC ---
[facility] [place] [address] CONSULTATION Name: RACHEAL BLANTON Room #: 242-P ADM IN M.R.#: [id number] Admission: 04/14/18 Attend Phys: Brent Ashton MD Discharge: Date of : 46 Report #: [id number] THIS REPORT FOR: //name// CC: [facility] Ashton REASON FOR CONSULTATION: Acute kidney injury. REASON FOR PRESENTATION: Shortness of breath. HISTORY OF PRESENT ILLNESS: A 67-year-old who presented to the emergency room having shortness of breath. He described it as progressive shortness of breath that started about 2 weeks ago. He visited with his primary care physician and was prescribed some medications with no improvement. He denies any chest pain. He denies fever or chills. He is known to have ventricular tachycardia status post AICD. He has history of heart failure with ejection fractions of around 40% and is followed by cardiology. His baseline creatinine from looking at his previous medical records was anywhere from 1.5 to 2. Prior to that, he had abnormal kidney function with a creatinine ranging around 1.6 as of 2017. He is a longstanding diabetic patient. He is not aware of any urinary symptoms in the form of frequency, urgency, hesitancy. I have evaluated him back in May of this year. He is known to have mitral valve repair with Malhotra-Maze procedure with left atrial appendage ligation. He was supposed to see me in the clinic; however, my clinic was cancelled and he never made it to my clinic. On presentation to the emergency room yesterday, he was found to have an elevated creatinine above his baseline with hyperkalemia. PAST MEDICAL HISTORY: 1. Chronic kidney disease. 2. Diabetes mellitus. 3. Mitral valve repair with annuloplasty. 4. Ventricular tachycardia post-pacemaker insertion. 5. Cardiomyopathy. 6. Coronary artery disease. 7. Malhotra-Maze procedure with left atrial appendage ligation. FAMILY HISTORY: Significant for hypertension. 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 No drug or alcohol abuse. MEDICATIONS: 1. Warfarin. 2. Amiodarone. 3. Atorvastatin. 4. Carvedilol. 5. Torsemide. [facility] [address] [place] [address] CONSULTATION Name: RACHEAL BLANOTN DESTINY Room #: 242-P [facility] IN ..#: [id number] Admission: 04/14/18 Attend Phys: Brent Ashton MD Discharge: Date of : 46 Report #: [id number] 6. Potassium chloride. 9. Victoza. REVIEW OF SYSTEMS: GENERAL: Significant for weakness. CARDIOVASCULAR: As per the history of present illness. PULMONARY: As per the history of present illness. GASTROINTESTINAL: No nausea or vomiting. GENITOURINARY: No frequency, no urgency. SKIN: No rash or ulcerations, but occasional bruises. PHYSICAL EXAMINATION: GENERAL: He is alert, oriented. He is on BiPAP. VITAL SIGNS: Blood pressure is 112/74. He had hypotension with blood pressure of 92/62. HEAD AND NECK: He is wearing the CPAP. CHEST: Bilateral crackles. CARDIOVASCULAR: No rub detected. ABDOMEN: Soft, nontender. LOWER EXTREMITIES: No edema. LABORATORY VALUES: Reviewed. Potassium is down to 6 from 6.9, sodium is 131, BUN is 53, creatinine is 3.2. UA with +1 protein. IMPRESSION AND PLAN: 1. Acute kidney injury. 2. Chronic kidney disease. 3. Cardiomyopathy. 4. Respiratory failure. 5. Hyperkalemia. 6. Hyponatremia. 7. Coagulopathy. 8. We will initiate the appropriate acute kidney injury workup. Differential diagnosis is vast, but includes prerenal, heart failure related acute kidney injury. 9. We will treat his hyperkalemia medically. 10. We will start on Lasix drip. 11. Discontinue potassium supplements. 12. Keep an eye on his values volume status, electrolytes. 13. Augment his heart status. 14. Defer the management of his coagulopathy to [place] [address] CONSULTATION Name: RACHEAL BLANTON Room #: [facility] IN M.R.#: [id number] Admission: 04/14/18 Attend Phys: Brent Ashton MD Discharge: Date of : 46 Report #: [id number] Further recommendation will be based on his acute kidney injury and laboratory values. <ELECTRONICALLY SIGNED> By: Maria Guadalupe Bailey MD 04/15/18 1553 0555 0752 Maria Guadalupe Bailey MD /nt
--- NOTE | ~2018-04-14 | EKG ---
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 MEADOWS : 1950 Requested By: Cornelio Ambriz Order Number: [id number] MD: Cornelio Ambriz Measurements Intervals [place] Rate: 72 P: [place]: 124 QRS: -111 QRSD: 223 T: 10 QT: 533 QTc: 584 Interpretive Statements AV sequential paced rhythm Compared to ECG 04/14/2018 17:54:11 QRS duration has widened Electronically Signed On 04-19-2018 8:46:21 CDT by Cornelio Ambriz [email or web address] <ELECTRONICALLY SIGNED> By: Cornelio Ambriz MD, [facility] [id number] 3 3 Cornelio Ambriz MD, [facility] /EPI
--- NOTE | ~2018-04-14 | HC ---
[facility] [place] [address] CONSULTATION Name: RACHEAL BLANTON Room #: 242-P ADM IN M.R.#: [id number] Admission: 04/14/18 Attend Phys: Brent Ashton MD Discharge: Date of : 46 Report #: [id number] THIS REPORT FOR: //name// CC: Maria Guadalupe [facility] Ashton HISTORY OF PRESENT ILLNESS: The patient is a 68-year-old gentleman with a complicated history including symptomatic paroxysmal atrial fibrillation for which he has undergone multiple cardioversions. Ultimately in 2012, he had mitral valve repair at [facility] in [place], [place]. He developed heart failure following the surgery related to RV pacing and underwent upgrade to a St. Viral biventricular pacer defibrillator. He thinks around the same time, an AV node ablation was performed. His recent history is notable for paroxysmal ventricular tachycardia. This was evaluated by coronary angiography demonstrating minimal plaquing in the coronary tree. Recent echocardiography demonstrated an ejection fraction of 40%-45%, mitral valve ring with mild mitral regurgitation and moderate pulmonary hypertension. He was placed on amiodarone. The patient has had chronic kidney disease with occasional bouts of exacerbation and heart failure. Now presents with a nonproductive cough. He denies orthopnea or paroxysmal nocturnal dyspnea. No history of near syncope or syncope. No symptoms to suggest ICD discharge. ALLERGIES: HE IS ALLERGIC TO ADHESIVE TAPE. PAST MEDICAL HISTORY: Medical records have been reviewed and include a history of congestive heart failure, mitral valve repair in 2012, cardiomyopathy, hypertension, dyslipidemia, diabetes nonsyncopal fall with rectus sheath hematoma in 03/2017, hypercoagulable. MEDICATIONS: Include amiodarone 400 mg daily and aspirin 81 mg daily, atorvastatin 40 mg daily, carvedilol 25 mg twice daily, glimepiride 2 mg daily, insulin, levothyroxine 175 mcg daily, Victoza, torsemide 60 mg daily, warfarin 6 mg daily and metolazone usually once every 10 days on an as needed basis for fluid retention. 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 FAMILY HISTORY: Notable for coronary artery disease in both parents. This occurred at advanced ages. REVIEW OF SYSTEMS: All systems negative except as that noted above. PHYSICAL EXAMINATION: GENERAL: A pleasant gentleman who is alert, BiPAP is placed. VITAL SIGNS: Blood pressure is 113/70, heart rate is 76 and regular, respirations unlabored at 18, temperature is 97.7 degrees, 5 feet 7 [place] [address] CONSULTATION Name: RACHEAL BLANTON DESTINY Room #: [facility] IN M.R.#: [id number] Admission: 04/14/18 Attend Phys: Brent Ashton MD Discharge: Date of : 48 Report #: [id number] tall, 264 pounds. HEENT: There are neither xanthelasma, subcutaneous xanthomata, oral mucosal or digital cyanosis or kyphoscoliosis present. CHEST: Reveals diminished breath sounds at both bases. CARDIAC: Regular rate and rhythm with normal S1, S2. ABDOMEN: Soft, obese and nontender. EXTREMITIES: Without cyanosis, clubbing or edema. Radial pulses are 2+. NEUROLOGIC: He is alert with a nonfocal exam. LABORATORY DATA: Sodium 131, potassium 6.0, creatinine 3.2 with a baseline of around 2.0, glucose 350. Troponin 0.1. ProBNP of 14,000. INR 4.4. White count 11.3, hemoglobin 14, hematocrit 44, platelet count 182, recent normal thyroid function studies. RADIOLOGICAL DATA: Chest x-ray is mild pulmonary venous congestion suggesting edema. EKG biventricular pacing. IMPRESSION: 1. [id number] systolic heart failure. 2. Paroxysmal ventricular tachycardia. 3. Acute kidney injury on chronic kidney disease; hyperkalemia. 4. History of mitral valve repair in 2012, mild mitral regurgitation by recent echocardiography. 5. Valvular; pacing-induced cardiomyopathy; prior St. Viral biventricular pacer defibrillator placement. 6. History of AV node ablation in 2012. 7. Hypertension. 8. Sleep apnea, on CPAP. 9. History of paroxysmal atrial flutter. 10. Hypercoagulable. 11. Minimal coronary artery disease by fairly recent angiography. RECOMMENDATIONS: 1. Continue amiodarone and carvedilol. 2. Continued efforts towards aggressive risk factor modification. 3. Nephrology consultation. <ELECTRONICALLY SIGNED> By: Cornelio Ambriz MD, FACC 04/16/18 1633 0749 42 Cornelio Ambriz MD, FACC /nt
[~2018-04-14 17:49] MED LIST changes: +COREG25 MG PO; +DEMADEX 2020 MG/1 TA PO; +VITAMIN D1000 UNI1 PO
[2018-04-14 18:31] LABS: ABSOLUTE NEUTROPHILS 8.5 thou/uL (1.4-8.2); BASOPHILS 0.4 % (0.0-2.0); EOSINOPHILS 0.2 % (0.0-3.0); HEMATOCRIT 43.8 % (42.0-52.0); HEMOGLOBIN 14.3 gm/dL (14.0-18.0); LYMPHOCYTES 5.5 % (24.0-44.0); MCH 30.5 pg (26.0-34.0); MCHC 32.7 g/dL (28.0-37.0); MCV 93.3 fL (80.0-100.0); MONOCYTES 9.1 % (1.0-8.0); PLATELET COUNT 196 thou/uL (150-400); POLYS 84.8 % (36.0-66.0); RDW 19.1 % (10.5-14.5)
[2018-04-14 18:42] LABS: APTT 37.2 Seconds (24.5-32.8); INR 3.4; PROTIME 34.1 Seconds (9.3-11.4)
[2018-04-14 18:50] LABS: CALCIUM 8.7 mg/dL (8.5-10.1); CREATININE 3.3 mg/dL (0.7-1.3)
[2018-04-14 18:52] LABS: POTASSIUM 6.9 mmol/L (3.5-5.1)
[2018-04-14 18:55] LABS: BE(vivo) -4.3 mmol/L (-2 to +3); HCO3 19.4 mmol/L (22.0-26.0); PCO2 32.1 mmHg (35.0-45.0); PO2 101.9 mmHg (80.0-100.0); sO2 97.7 % (92.0-98.0)
[2018-04-14 18:55] LABS: ALBUMIN 2.9 g/dL (3.4-5.0); MAGNESIUM 3.1 mg/dL (1.8-2.4); TOTAL PROTEIN 7.5 g/dL (6.4-8.2); TROPONIN-I 0.1 ng/mL (<0.06)
[2018-04-14 19:33] LABS: URINE BLOOD TRACE (Negative); URINE CLARITY SL CLOUDY; URINE COLOR YELLOW; URINE GLUCOSE-RANDOM* TRACE (Negative); URINE KETONES 1+ (Negative); URINE LEUKOCYTES-REFLEX NEGATIVE (Negative); URINE NITRITE-REFLEX NEGATIVE (Negative); URINE PROTEIN (DIPSTICK) 1+ (Negative); URINE SPECIFIC GRAVITY >= 1.030 (1.005-1.035)
[2018-04-14 19:36] LABS: ICTOTEST (BILI CONFIRMATORY) Negative (Negative); URINE BILIRUBIN NEGATIVE (Negative)
[2018-04-14 19:39] LABS: SQUAMOUS >10 Many /LPF (0-3)
[2018-04-14 19:41] LABS: CASTS None Seen /LPF (None Seen); URINE RBC 0-2 Rare /HPF (0-2); URINE WBC-REFLEX 0-5 Rare /HPF (0-5)
[2018-04-14 19:43] LABS: AMORPHOUS URATES Few /LPF (None Seen); BACTERIA-REFLEX 1-9 Few /HPF (None Seen)
[2018-04-15] VITALS (28 sets, daily range): BP systolic 80–135; BP diastolic 49–91
[2018-04-15 04:30] LABS: HEMOGLOBIN 14.6 gm/dL (14.0-18.0); MCH 30.2 pg (26.0-34.0); MCHC 33.1 g/dL (28.0-37.0); MCV 91.3 fL (80.0-100.0); RBC 4.82 mil/uL (4.50-6.00); RDW 18.9 % (10.5-14.5); WBC 11.3 thou/uL (4.0-11.0)
[2018-04-15 04:40] LABS: CALCIUM 8.6 mg/dL (8.5-10.1); CREATININE 3.2 mg/dL (0.7-1.3)
[2018-04-15 04:47] LABS: APTT 38.3 Seconds (24.5-32.8); INR 4.4; PROTIME 44.3 Seconds (9.3-11.4)
[2018-04-15 08:52] LABS: URINE CREATININE-RANDOM* 56.3 mg/dL; URINE PROTEIN-RANDOM* 95.7 mg/dL (<11.9); URINE SODIUM-RANDOM* <5 mmol/L
[2018-04-16] VITALS (37 sets, daily range): BP systolic 75–109; BP diastolic 39–68
[2018-04-16 05:01] LABS: ALBUMIN 2.6 g/dL (3.4-5.0); CALCIUM 8.8 mg/dL (8.5-10.1); CREATININE 2.9 mg/dL (0.7-1.3); PHOSPHORUS 4.2 mg/dL (2.5-4.9)
[2018-04-16 05:07] LABS: POTASSIUM 2.9 mmol/L (3.5-5.1)
[2018-04-17] VITALS (22 sets, daily range): BP systolic 86–109; BP diastolic 52–78
[2018-04-17 05:38] LABS: ALBUMIN 2.6 g/dL (3.4-5.0); CALCIUM 8.4 mg/dL (8.5-10.1); CREATININE 2.8 mg/dL (0.7-1.3); PHOSPHORUS 3.9 mg/dL (2.5-4.9)
[2018-04-17 05:51] LABS: POTASSIUM 2.9 mmol/L (3.5-5.1)
[2018-04-17 08:41] LABS: INR 2.4; PROTIME 24.3 Seconds (9.3-11.4)
[2018-04-18 04:47] VITALS: BP 112/79
[2018-04-18 05:55] LABS: ALBUMIN 2.5 g/dL (3.4-5.0); CALCIUM 8.4 mg/dL (8.5-10.1); CREATININE 2.1 mg/dL (0.7-1.3); PHOSPHORUS 3.1 mg/dL (2.5-4.9); POTASSIUM 3.3 mmol/L (3.5-5.1)
[2018-04-18 06:00] LABS: INR 1.7; PROTIME 17.6 Seconds (9.3-11.4)
[2018-04-18 07:52] VITALS: BP 102/73
[2018-04-18 15:11] LABS: KAPPA FREE LIGHT CHAINS 26.2 mg/L (3.3-19.4); KAPPA/LAMBDA RATIO 0.76 (0.26-1.65); LAMBDA FREE LIGHT CHAINS 34.4 mg/L (5.7-26.3)
[2018-04-18 16:06] VITALS: BP 110/83
[2018-04-18 20:10] VITALS: BP 103/72
[2018-04-19 04:31] VITALS: BP 102/70
[2018-04-19 07:17] LABS: CALCIUM 8.8 mg/dL (8.5-10.1); CREATININE 2.6 mg/dL (0.7-1.3)
[2018-04-19 07:20] LABS: POTASSIUM 6.2 mmol/L (3.5-5.1)
[2018-04-19 07:46] VITALS: BP 120/100
[2018-04-19 08:48] LABS: HCO3 19.1 mmol/L (22.0-26.0); PCO2 29.9 mmHg (35.0-45.0); PO2 165.3 mmHg (80.0-100.0); pH 7.423 (7.360-7.450); sO2 99.2 % (92.0-98.0)
[2018-04-19 09:34] LABS: APTT 34.9 Seconds (24.5-32.8); INR 1.6; PROTIME 15.8 Seconds (9.3-11.4)
== END 2018-04-19 13:27 | DRG 682 ==
LOC: ER 17:49 → EROBS 19:45 → ICU 19:45 → 3W 04-17 18:22 → ICU 04-19 08:10
PROVIDERS: Emergency Medicine; Family Medicine; Hospitalist; Internal Medicine; Internal Medicine Nephrology
PROC: 5A09357 Assistance with Respiratory Ventilation, Less than 24 Consecutive Hours, Continuous Positive Airway Pressure (ICD-10-PCS; principal; 2018-04-14)
PROC: 5A09357 Assistance with Respiratory Ventilation, Less than 24 Consecutive Hours, Continuous Positive Airway Pressure (ICD-10-PCS; 2018-04-15)
PROC: 5A09357 Assistance with Respiratory Ventilation, Less than 24 Consecutive Hours, Continuous Positive Airway Pressure (ICD-10-PCS; 2018-04-16)
PROC: 5A09357 Assistance with Respiratory Ventilation, Less than 24 Consecutive Hours, Continuous Positive Airway Pressure (ICD-10-PCS; 2018-04-17)
PROC: 5A09357 Assistance with Respiratory Ventilation, Less than 24 Consecutive Hours, Continuous Positive Airway Pressure (ICD-10-PCS; 2018-04-18)
PROC: 5A09357 Assistance with Respiratory Ventilation, Less than 24 Consecutive Hours, Continuous Positive Airway Pressure (ICD-10-PCS; 2018-04-19)
PROC: 0BH17EZ Insertion of Endotracheal Airway into Trachea, Via Natural or Artificial Opening (ICD-10-PCS; 2018-04-19)
DX: N17.9 Acute kidney failure, unspecified (principal); I50.23 Acute on chronic systolic (congestive) heart failure; J96.90 Respiratory failure, unspecified, unspecified whether with hypoxia or hypercapnia; D68.9 Coagulation defect, unspecified; E87.1 Hypo-osmolality and hyponatremia; I47.2 Ventricular tachycardia; D68.59 Other primary thrombophilia; I42.7 Cardiomyopathy due to drug and external agent; I13.0 Hypertensive heart and chronic kidney disease with heart failure and stage 1 through stage 4 chronic kidney disease, or unspecified chronic kidney disease; E78.00 Pure hypercholesterolemia, unspecified; N18.9 Chronic kidney disease, unspecified; E87.5 Hyperkalemia; E11.22 Type 2 diabetes mellitus with diabetic chronic kidney disease; I25.10 Atherosclerotic heart disease of native coronary artery without angina pectoris; I48.0 Paroxysmal atrial fibrillation; G47.33 Obstructive sleep apnea (adult) (pediatric); R31.9 Hematuria, unspecified; I95.9 Hypotension, unspecified; I46.9 Cardiac arrest, cause unspecified; I25.2 Old myocardial infarction; Z95.0 Presence of cardiac pacemaker; Z79.4 Long term (current) use of insulin; Z88.8 Allergy status to other drugs, medicaments and biological substances; Z82.49 Family history of ischemic heart disease and other diseases of the circulatory system; Z87.891 Personal history of nicotine dependence
CPT/HCPCS: 10078; 10879